=== PATIENT | female | born 1985 | race Two or more races ===

== ENCOUNTER 2017-01-19 08:19 | Emergency (ER) | payer OTHER ==
[2017-01-19] MEDS ORDERED: PSEUDOEPHEDRINE HCL 30 MG TABLET PO ONE (09:27)
[2017-01-19] MEDS ORDERED: IPRATROPIUM/ALBUTEROL 0.5-2.5 MG/3 ML AMPUL NEB ONE (09:27)
[2017-01-19] MEDS ORDERED: PREDNISONE 20 MG TABLET PO ONE (09:27)
--- NOTE | 2017-01-19 10:32 | ER Document Report ---
HPI - HPI Patient complains to provider of: cough, congestion Onset: Other Onset/Duration: Persistent - 5 days Quality of pain: Achy Pain Level: 4 Context: Patient presents complaining of cough and congestion for the past 5 days. Patient reports cough is occasionally productive. No fever. Associated Symptoms: Productive cough. denies: Fever Exacerbated by: Coughing Relieved by: Denies Similar symptoms previously: Yes Recently seen / treated by doctor: No - ROS ROS below otherwise negative: Yes Systems Reviewed and Negative: Yes All other systems reviewed and negative - CONSTITUTIONAL Constitutional: DENIES: Chills - EENT EENT: DENIES: Sore Throat, Ear Pain - CARDIOVASCULAR Cardiovascular: REPORTS: Chest pain - With coughing - RESPIRATORY Respiratory: REPORTS: Coughing - GASTROINTESTINAL Gastrointestinal: DENIES: Abdominal Pain, Nausea, Patient vomiting - MUSCULOSKELETAL Musculoskeletal: DENIES: Extremity pain, Back Pain, Neck Pain - DERM Skin Color: Normal Past Medical History - General Information source: Patient - Social History Smoking Status: Current Every Day Smoker Frequency of alcohol use: None Drug Abuse: None Occupation: food trades assistants Family History: Reviewed & Not Pertinent Patient has suicidal ideation: No Patient has homicidal ideation: No - Medical History Medical History: Negative Renal/ Medical History: Denies: Hx Peritoneal Dialysis Surgical Hx: Negative - Immunizations Hx Diphtheria, Pertussis, Tetanus Vaccination: Yes Vertical Provider Document - CONSTITUTIONAL Agree With Documented VS: Yes Exam Limitations: No Limitations General Appearance: WD/WN, No Apparent Distress - INFECTION CONTROL TRAVEL OUTSIDE OF THE [place] IN LAST 30 DAYS: No - HEENT HEENT: Atraumatic, Normocephalic. negative: Pharyngeal Exudate, Pharyngeal Tenderness, Pharyngeal Erythema, Tympanic Membrane Red Notes: Clear rhinorrhea - NECK Neck: Normal Inspection, Supple. negative: Lymphadenopathy-Left, Lymphadenopathy-Right - RESPIRATORY Respiratory: No Respiratory Distress, Wheezing. negative: Chest Non-Tender - Chest tenderness with coughing only O2 Sat by Pulse Oximetry: 97 - CARDIOVASCULAR Cardiovascular: Regular Rate, Regular Rhythm, No Murmur - BACK Back: Normal Inspection. negative: CVA Tenderness-Right, CVA Tenderness-Left - MUSCULOSKELETAL/EXTREMETIES Musculoskeletal/Extremeties: REGGIE FRAZIER - NEURO Level of Consciousness: Awake, Alert, Appropriate Motor/Sensory: No Motor Deficit - DERM Integumentary: Warm, Dry, No Rash Course - Re-evaluation Re-evalutation: 01/19/17 10:29 Patient with decreased wheezing with cough. Patient with good air movement. - Vital Signs Vital signs: Temp Pulse Resp BP Pulse Ox 98.6 F 75 16 133/88 H 97 01/19/17 08:25 01/19/17 08:25 01/19/17 08:25 01/19/17 08:25 01/19/17 08:25 - Diagnostic Test Radiology reviewed: Image reviewed, Reports reviewed Discharge - Discharge Clinical Impression: Bronchospasm, Chest wall pain Upper respiratory infection Qualifiers: URI type: unspecified URI Qualified Code(s): J06.9 - Acute upper respiratory infection, unspecified Condition: Stable Disposition: HOME, SELF-CARE Additional Instructions: Return immediately for any new or worsening symptoms Followup with your primary care provider, call tomorrow to make a followup appointment UPPER RESPIRATORY ILLNESS: You have a viral infection of the respiratory passages -- a "cold." This common infection causes nasal congestion, drainage, and often sore throat and cough. It is highly contagious. The disease usually lasts about 10 to 14 days. There is no "cure" for the viral infection -- it must run its course. If there is a complication, such as bacterial infection in the nose, sinuses, middle ear, or bronchial tubes, antibiotics may be required. The antibiotics won't affect the virus. Drink plenty of fluids. A humidifier may help. An expectorant medication or decongestant may make you more comfortable. Use acetaminophen or ibuprofen for fever or aches. See the doctor if fever persists over two days, if there is any significant worsening of your symptoms, or if you simply fail to improve as expected. BRONCHOSPASM: You have tightness in the bronchial tubes, called bronchospasm. This often occurs with bronchial infections. Allergies, inhaled chemicals, and polluted or cold air can also provoke bronchospasm. It's more likely in patients with asthma in the family. Emergency treatment of bronchospasm may include adrenaline shots or bronchodilator aerosol. You may feel lightheaded and have a rapid pulse for an hour or two. Rest and get plenty of fluids. At home, we'll treat you with a bronchodilator inhaler. Antibiotics and corticosteroids may be required for some patients. Until you recover, avoid chemical fumes, dusts, pollens, and exercising in very cold or dry air. If you smoke, stop now!! If you develop a fever, increased wheezing, chest pain, or severe shortness of breath, you should contact the doctor immediately. INHALED BRONCHODILATORS: You have received a treatment of and/or prescription for an inhaled bronchodilator -- a medication which stimulates the airways in the lung to dilate. This improves the flow of air in asthma, bronchitis, and emphysema. These medicines have some similarity to adrenaline, and can cause similar side effects: shakiness, racing heart, and a sense of nervousness. These side effects decrease with time. Contact your doctor if these side effects are severe. Do not over-use the medicine. Too-frequent use of the inhaler may make it ineffective. Call your doctor if the inhaler is not controlling your symptoms at the prescribed doses. STEROID MEDICATION: You have been given an injection of or oral medicine of the cortisone/ steroid class. This medication is used to control inflammation or allergy. Saturnino t is usually only given for a short period of time, until the acute process subsides. There are usually no side effects from short-term use of cortisone-like medications. Some persons feel an increased sense of well-being and are not sleepy at bedtime. Long-term use of cortisone medications is best avoided, unless required for a severe condition. If your condition does not remit, or relapses after the course of corticosteroid medication, you should consult your physician. USE OF ACETAMINOPHEN (Tylenol): Acetaminophen may be taken for pain relief or fever control. It's much safer than aspirin, offering a wider range of "safe" dosages. It is safe during . Some brand names are Tylenol, Panadol, Datril, Anacin 3, Tempra, and Liquiprin. Acetaminophen can be repeated every four hours. The following are maximum recommended dosages: >89 pounds or adults 650 mg to 900 mg Acetaminophen can be repeated every four hours. Maximum dose not to exceed 4000 mg a day. SMOKING: If you smoke, you should stop smoking. The tar and chemicals in cigarette smoke are harmful. Smoking has been shown to cause: emphysema chronic bronchitis lung cancer mouth and throat cancer stomach and pancreas cancer premature aging defects In addition, smoking increases ear and lung infections in children of smokers. FOLLOW-UP CARE: If you have been referred to a physician for follow-up care, call the physician s office for an appointment as you were instructed or within the next two days. If you experience worsening or a significant change in your symptoms, notify the physician immediately or return to the Emergency Department at any time for re-evaluation. Prescriptions: Albuterol Sulfate [Ventolin Hfa] 2 puff IH Q4HP PRN #17 gm PRN Reason: Acetaminophen with Codeine [Acetaminophen-Cod #3 Tablet] 1 each PO Q6 PRN #12 tablet PRN Reason: Guaifenesin/Pseudoephedrne HCl [Mucinex D ER Tablet] 1 each PO Q12 PRN #12 tab.er.12h PRN Reason: Prednisone [Deltasone 20 mg Tablet] 3 tab PO DAILY 4 Days Forms: Return to Work Referrals: [facility] [Provider Group] - Follow up as needed
[2017-01-19 10:58] VITALS: BP 121/80
== END 2017-01-19 10:57 | disposition home or self-care (01) ==
LOC: ER 08:19
DX: J06.9 Acute upper respiratory infection, unspecified (principal); J98.01 Acute bronchospasm; R07.89 Other chest pain; R05 Cough; J34.89 Other specified disorders of nose and nasal sinuses; F17.200 Nicotine dependence, unspecified, uncomplicated
CPT/HCPCS: 94640; 99283; 71020; J7512; J7620

== ENCOUNTER 2017-12-12 10:13 | Emergency (ER) | payer SELFPAY ==
[2017-12-12] MEDS ORDERED: LIDOCAINE 2% VISCOUS SOLN 20 ML UDCUP PO ONE (10:39)
[2017-12-12] MEDS ORDERED: DEXAMETHASONE SOD PHOS INJ 10 MG/1 ML VIAL IM ONE (10:39)
[2017-12-12] MEDS ORDERED: MAG HYDROX/AL HYDROX/SIMETH SUSP 30 ML UDCUP PO ONE (10:39)
[2017-12-12] MEDS ORDERED: DIPHENHYDRAMINE HCL 25 MG/10 ML UDC PO ONE (10:39)
--- NOTE | 2017-12-12 11:42 | ER Document Report ---
ED ENT - General Chief Complaint: Sore Throat Stated Complaint: FLU SYMPTOMS Time Seen by Provider: 12/12/17 10:33 Mode of Arrival: Ambulatory Information source: Patient Notes: Patient is a 32 year old female who presents to the ER today for sore throat that started 24 hours ago with body aches and chills, hot flashes. She admits to mild cough. Her significant other was just diagnosed with strep 2 days ago. TRAVEL OUTSIDE OF THE [place] IN LAST 30 DAYS: No - Related Data Allergies/Adverse Reactions: No Known Allergies Allergy (Verified 12/12/17 10:15) Past Medical History - General Information source: Patient - Social History Smoking Status: Never Smoker Chew tobacco use (# tins/day): No Frequency of alcohol use: None Drug Abuse: None Family History: Reviewed & Not Pertinent Patient has suicidal ideation: No Patient has homicidal ideation: No Renal/ Medical History: Denies: Hx Peritoneal Dialysis - Immunizations Hx Diphtheria, Pertussis, Tetanus Vaccination: Yes Review of Systems - Review of Systems Constitutional: See HPI EENT: See HPI Cardiovascular: No symptoms reported Respiratory: See HPI Gastrointestinal: No symptoms reported Genitourinary: No symptoms reported Female Genitourinary: No symptoms reported Musculoskeletal: No symptoms reported Skin: No symptoms reported Hematologic/Lymphatic: No symptoms reported Neurological/Psychological: No symptoms reported Physical Exam - Vital signs Vitals: Temp Pulse Resp BP Pulse Ox 98.1 F 89 16 120/75 96 12/12/17 10:29 12/12/17 10:29 12/12/17 10:29 12/12/17 10:29 12/12/17 10:29 - Notes Notes: PHYSICAL EXAMINATION: GENERAL: Mildly ill-appearing, but in no acute distress. HEAD: Atraumatic, normocephalic. EYES: Pupils equal round and reactive to light, extraocular movements intact, sclera anicteric, conjunctiva are normal. ENT: ear canals without erythema or foreign body, TMs pearly frank with good bony landmarks, nares patent, oropharynx erythematous with bilaterally enlarged tonsils with exudate. Moist mucous membranes. NECK: Normal range of motion, supple with bilateral cervical lymphadenopathy LUNGS: CTAB and equal. No wheezes rales or rhonchi. HEART: Regular rate and rhythm without murmurs EXTREMITIES: Normal range of motion, no pitting edema. No cyanosis. NEUROLOGICAL: Cranial nerves grossly intact. Normal sensory/motor exams. PSYCH: Normal mood, normal affect. SKIN: Warm, Dry, normal turgor, no rashes or lesions noted Course - Re-evaluation Re-evalutation: 12/12/17 11:42 Strep is positive today. Will treat with antibiotics, Magic mouthwash. Patient received a steroid shot for the swelling today. - Vital Signs Vital signs: Temp Pulse Resp BP Pulse Ox 98.1 F 89 16 120/75 96 12/12/17 10:29 12/12/17 10:29 12/12/17 10:29 12/12/17 10:29 12/12/17 10:29 Discharge - Discharge Clinical Impression: Strep throat Condition: Stable Disposition: HOME, SELF-CARE Additional Instructions: Return immediately for any new or worsening symptoms. Follow up with primary care provider, call tomorrow to make followup appointment. Prescriptions: Amoxicillin 500 mg PO TID #30 capsule Nystatin/Dexameth/Diphen [Magic Mouthwash ([facility] Formula) Susp] 5 ml PO QID #120 ml Forms: Return to Work
[2017-12-12 11:56] VITALS: BP 118/72
== END 2017-12-12 11:55 | disposition home or self-care (01) ==
LOC: ER 10:13
DX: J02.0 Streptococcal pharyngitis (principal); R05 Cough; R68.83 Chills (without fever)
CPT/HCPCS: 99283; 87880; J3490 ×2; J1100

== ENCOUNTER 2018-03-11 19:22 | Emergency (ER) | payer SELFPAY ==
[2018-03-11 19:29] VITALS: BP 119/74
--- NOTE | 2018-03-11 19:49 | ER Document Report ---
ED ENT - General Chief Complaint: Sore Throat Stated Complaint: SORE THROAT Time Seen by Provider: 03/11/18 19:38 Mode of Arrival: Ambulatory Information source: Patient Notes: 32 yo female presents to ED for complaint of sore throat. She states last night her throat started being scratchy then as the night progressed it became more more sore. She states that she has swollen tonsils with white pus pockets. Patient is alert and oriented speaking in full sentences respirations regular and unlabored and walking with a even steady gait. Patient does appear to have tonsil stones. TRAVEL OUTSIDE OF THE [place] IN LAST 30 DAYS: No - HPI Patient complains to provider of: Nose problem, Throat problem Onset: Yesterday Onset/Duration: Gradual Quality of pain: Sharp Severity: Moderate Pain Level: 4 Context: Recent Illness Location of pain: Nose, Sinus, Throat Associated symptoms: Runny nose, Sinus pain, Sinus drainage, Sore throat Similar symptoms previously: Yes Recently seen / treated by doctor: No - Related Data Allergies/Adverse Reactions: No Known Allergies Allergy (Verified 12/12/17 10:15) Past Medical History - General Information source: Patient - Social History Smoking Status: Current Every Day Smoker Cigarette use (# per day): Yes - 1/2 ppd Chew tobacco use (# tins/day): No Smoking Education Provided: Yes - 4 min Frequency of alcohol use: Social Drug Abuse: None Occupation: [employer] Lives with: Spouse/Significant other - Lives with Family History: Reviewed & Not Pertinent Patient has suicidal ideation: No Patient has homicidal ideation: No - Past Medical History Cardiac Medical History: Reports: None Pulmonary Medical History: Reports: None EENT Medical History: Reports: None Neurological Medical History: Reports: None Endocrine Medical History: Reports: None Renal/ Medical History: Reports: None Malignancy Medical History: Reports: None GI Medical History: Reports: None Musculoskeltal Medical History: Reports None Skin Medical History: Reports None Psychiatric Medical History: Reports: None Traumatic Medical History: Reports: None Infectious Medical History: Reports: None Surgical Hx: Negative Past Surgical History: Reports: None - Immunizations Immunizations up to date: Yes Hx Diphtheria, Pertussis, Tetanus Vaccination: Yes Review of Systems - Review of Systems Constitutional: No symptoms reported EENT: Throat pain Cardiovascular: No symptoms reported Respiratory: No symptoms reported Gastrointestinal: No symptoms reported Genitourinary: No symptoms reported Female Genitourinary: No symptoms reported Musculoskeletal: No symptoms reported Skin: No symptoms reported Hematologic/Lymphatic: No symptoms reported Neurological/Psychological: No symptoms reported -: Yes All other systems reviewed and negative Physical Exam - Vital signs Vitals: Temp Pulse Resp BP Pulse Ox 99.8 F 101 H 18 119/74 96 03/11/18 19:28 03/11/18 19:28 03/11/18 19:28 03/11/18 19:28 03/11/18 19:28 Interpretation: Normal - General General appearance: Appears well, Alert - HEENT Head: Normocephalic, Atraumatic Eyes: Normal Pupils: PERRL Ears: Normal External canal: Normal Tympanic membrane: Normal Sinus: Normal Nasal: Purulent discharge, Swelling Mouth/Lips: Normal Mucous membranes: Normal Pharynx: Erythema, Exudate, Tonsillar hypertrophy Neck: Normal - Respiratory Respiratory status: No respiratory distress Chest status: Nontender Breath sounds: Normal Chest palpation: Normal - Cardiovascular Rhythm: Regular Heart sounds: Normal auscultation Murmur: No - Abdominal Inspection: Normal Distension: No distension Bowel sounds: Normal Tenderness: Nontender Organomegaly: No organomegaly - Back Back: Normal, Nontender - Extremities General upper extremity: Normal inspection, Nontender, Normal color, Normal ROM , Normal temperature General lower extremity: Normal inspection, Nontender, Normal color, Normal ROM , Normal temperature, Normal weight bearing. No: Ry's sign - Neurological Neuro grossly intact: Yes Cognition: Normal Orientation: AAOx4 [place] Coma Scale Eye Opening: Spontaneous [place] Coma Scale Verbal: Oriented Alberto Coma Scale Motor: Obeys Commands [place] Coma Scale Total: 15 Speech: Normal Motor strength normal: LUE, RUE, LLE, RLE Sensory: Normal - Psychological Associated symptoms: Normal affect, Normal mood - Skin Skin Temperature: Warm Skin Moisture: Dry Skin Color: Normal Course - Re-evaluation Re-evalutation: 03/11/18 20:59 Patient was treated with penicillin G IM and Decadron IM for her strep throat. Patient also had upper respiratory infection. Patient stated that the symptoms would probably continue even after the penicillin and Decadron. Patient was instructed to follow-up with her primary doctor. Patient was instructed on precautions to not spread the strep to her . - Vital Signs Vital signs: Temp Pulse Resp BP Pulse Ox 99.8 F 101 H 18 119/74 96 03/11/18 19:28 03/11/18 19:28 03/11/18 19:28 03/11/18 19:28 03/11/18 19:28 Discharge - Discharge Clinical Impression: Strep pharyngitis URI (upper respiratory infection) Qualifiers: URI type: unspecified URI Qualified Code(s): J06.9 - Acute upper respiratory infection, unspecified Condition: Stable Disposition: HOME, SELF-CARE Instructions: Family Physicians / Practices, Use of Xana-Jca-Dndblwg Ibuprofen ([facility]) Additional Instructions: STREP THROAT: Your sore throat is due to the streptococcus germ (strep throat). Strep throat usually makes you feel quite ill with fever and aches, headache, swollen sore throat, and tender bumps under the angles of the jaw. Strep throat requires antibiotic treatment. Although the sore throat may go away by itself, complications such as rheumatic fever, kidney disease, or throat abscess can occur. We usually prescribe antibiotics by mouth. Be sure to take the medicine until it's gone. If you stop early, the strep may come back. If you are vomiting, are severely ill, or can't remember to take pills, we can give you an antibiotic shot. Take acetaminophen or ibuprofen for pain and fever. Sip frequent clear liquids, or use popsicles or ice chips. Anesthetic sprays or lozenges may help. Make sure the air in the room is not too dry. Avoid using decongestants or antihistamines. Call the doctor if there is no improvement in three days, or if you have difficulty breathing, increasing throat pain, high fever, rash, or frequent vomiting. UPPER RESPIRATORY ILLNESS: You have a viral infection of the respiratory passages -- a "cold." This common infection causes nasal congestion, drainage, and often sore throat and cough. It is highly contagious. The disease usually lasts about 10 to 14 days. There is no "cure" for the viral infection -- it must run its course. If there is a complication, such as bacterial infection in the nose, sinuses, middle ear, or bronchial tubes, antibiotics may be required. The antibiotics won't affect the virus. Drink plenty of fluids. A humidifier may help. An expectorant medication or decongestant may make you more comfortable. Use acetaminophen or ibuprofen for fever or aches. See the doctor if fever persists over two days, if there is any significant worsening of your symptoms, or if you simply fail to improve as expected. Penicillins The antibiotic you have received is a member of the penicillin family. This is a very useful class of antibiotics. The particular type of antibiotic chosen for you was determined by the nature of your problem. Penicillins are absorbed best when taken on an empty stomach, and should be taken either a half hour before or two hours after a meal. Some newer medicines of the penicillin class are better taken with food -- if this is the case, the pharmacist will label the medicine to alert you. Penicillins usually have no side effects. However, allergy to penicillins is common. If you have had an allergic reaction to any drug of the penicillin family, you should never take any other penicillin. Notify your doctor at once if you develop hives, itching, swelling, faintness, or shortness of breath. Less serious side effects can include nausea or diarrhea. DECONGESTANT MEDICATION: A decongestant medicine has been suggested. Often this medicine is combined in the same tablet with an antihistamine or expectorant. This type of medicine is helpful in treating a bad cold or sinus condition, as well as in treatment of the nasal congestion of hay fever. It is not of much benefit for lung infections. Decongestant medicines are related to stimulants. They can cause an increase in blood pressure and heart rate. Persons with heart disease and high blood pressure should not take decongestants without discussing this with the physician. If you develop palpitations, chest pain, headache, or tremors, stop the medicine and consult your physician. STEROID MEDICATION: You have been given an injection of or oral medicine of the cortisone/ steroid class. This medication is used to control inflammation or allergy. Saturnino t is usually only given for a short period of time, until the acute process subsides. There are usually no side effects from short-term use of cortisone-like medications. Some persons feel an increased sense of well-being and are not sleepy at bedtime. Long-term use of cortisone medications is best avoided, unless required for a severe condition. If your condition does not remit, or relapses after the course of corticosteroid medication, you should consult your physician. USE OF ACETAMINOPHEN (Tylenol): Acetaminophen may be taken for pain relief or fever control. It's much safer than aspirin, offering a wider range of "safe" dosages. It is safe during . Some brand names are Tylenol, Panadol, Datril, Anacin 3, Tempra, and Liquiprin. Acetaminophen can be repeated every four hours. The following are maximum recommended dosages: >89 pounds or adults 650 mg to 900 mg Acetaminophen can be repeated every four hours. Maximum dose not to exceed 4000 mg a day. SMOKING: If you smoke, you should stop smoking. The tar and chemicals in cigarette smoke are harmful. Smoking has been shown to cause: emphysema chronic bronchitis lung cancer mouth and throat cancer stomach and pancreas cancer premature aging defects In addition, smoking increases ear and lung infections in children of smokers. FOLLOW-UP CARE: If you have been referred to a physician for follow-up care, call the physician s office for an appointment as you were instructed or within the next two days. If you experience worsening or a significant change in your symptoms, notify the physician immediately or return to the Emergency Department at any time for re-evaluation. Forms: Smoking Cessation Education, Return to Work
[2018-03-11] MEDS ORDERED: DEXAMETHASONE SOD PHOS INJ 10 MG/1 ML VIAL IM ONE (20:01)
[2018-03-11] MEDS ORDERED: PENICILLIN G BENZATHINE 1.2 MILLION UNIT/2 ML DISP.SYRIN IM ONE (20:01)
== END 2018-03-11 20:37 | disposition home or self-care (01) ==
LOC: ER 19:22
DX: J02.0 Streptococcal pharyngitis (principal); J35.1 Hypertrophy of tonsils; R09.89 Other specified symptoms and signs involving the circulatory and respiratory systems; F17.210 Nicotine dependence, cigarettes, uncomplicated
CPT/HCPCS: 99406; 99283; 96372; 87880; J0561; J1100

== ENCOUNTER 2018-07-10 08:23 | Emergency (ER) | payer SELFPAY ==
[2018-07-10] MEDS ORDERED: METHOCARBAMOL 750 MG TABLET PO ONE (09:19)
[2018-07-10] MEDS ORDERED: LIDOCAINE 5% (700 MG) TRANSDERMAL ADH..PATCH TP ONE (09:20)
[2018-07-10] MEDS ORDERED: KETOROLAC TROMETHAMINE 60 MG/2 ML SDV IM ONE (09:20)
--- NOTE | 2018-07-10 09:56 | ER Document Report ---
HPI - HPI Pain Level: 3 Notes: Patient is a 32-year-old female who presents with chief complaint of right groin and leg pain. Patient reports this is been ongoing for 2 days. Patient denies any trauma or injury to the area. Patient denies any fever, chills, abnormal vaginal discharge. Patient reports last menstrual period was on . Patient reports no possibility of when she is in a same-sex relationship. Patient is a non-smoker, is not taking control and has had no recent travel. No history of DVT. - MUSCULOSKELETAL Musculoskeletal: REPORTS: Extremity pain - right leg groin down Past Medical History - Social History Smoking Status: Current Every Day Smoker Chew tobacco use (# tins/day): No Frequency of alcohol use: Occasional Drug Abuse: None Family History: Reviewed & Not Pertinent Patient has suicidal ideation: No Patient has homicidal ideation: No Renal/ Medical History: Denies: Hx Peritoneal Dialysis - Immunizations Immunizations up to date: Yes Hx Diphtheria, Pertussis, Tetanus Vaccination: Yes Vertical Provider Document - CONSTITUTIONAL Notes: PHYSICAL EXAMINATION: GENERAL: Well-appearing, well-nourished and in no acute distress. HEAD: Atraumatic, normocephalic. EYES: Pupils equal round extraocular movements intact, conjunctiva are normal. ENT: Nares patent NECK: Normal range of motion LUNGS: No respiratory distress Musculoskeletal: Normal range of motion was noted to right lower extremity however it is painful for patient to move right leg. Palpable lymph node noted to right inguinal canal. No rashes or swelling noted. NEUROLOGICAL: Normal speech, normal gait. PSYCH: Normal mood, normal affect. SKIN: Warm, Dry, normal turgor, no rashes or lesions noted. - INFECTION CONTROL TRAVEL OUTSIDE OF THE [place] IN LAST 30 DAYS: No Course - Re-evaluation Re-evalutation: Patient's examination and history of present illness is consistent with a musculoskeletal strain. Dr. Robert came to the room to evaluate the patient and is in agreement's. Patient will be discharged home at this time in stable condition with strict ED return precautions as well as plan for follow-up with her primary care. Patient agrees with this plan. - Vital Signs Vital signs: Temp Pulse Resp BP Pulse Ox 98.5 F 95 18 110/67 98 07/10/18 08:29 07/10/18 08:29 07/10/18 08:29 07/10/18 08:29 07/10/18 08:29 Discharge - Discharge Clinical Impression: Musculoskeletal strain Condition: Stable Disposition: HOME, SELF-CARE Additional Instructions: Muscle Strain Your pain is most consistent with a muscle strain--a tear of the fibers within the muscle. This often occurs with strenuous exertion, or during an injury that suddenly stretches the muscle. The seriousness of a strain varies. Some strains heal within days, others cause problems for months. X-rays cannot show a muscle strain. X-rays are taken only if symptoms suggest that a fracture could be present. The usual treatment of a muscle strain is rest and ice packs. Sometimes, a sling, splint, or crutches may be necessary to rest the muscle. The muscle can be used again once pain subsides. Severe strains require a special exercise and stretching program to prevent permanent stiffness and disability. Your doctor will advise you if this will be necessary. Call the doctor immediately if pain or swelling becomes severe, or if numbness or discoloration develop. Lymphadenopathy You have enlargement of lymph glands, called lymphadenopathy. Lymph glands filter tissue fluids. They help to fight infection. Most of the time, enlarged lymph glands are not serious. Lymph glands may react to a viral or bacterial infection by becoming swollen and painful. When the infection goes away, the glands shrink. Sometimes a lymph gland will remain enlarged for a long time after an infection. Occasionally, a lymph gland may be overwhelmed by infection and form an abscess. If an enlarged lymph gland has signs that are suspicious for tumor, the doctor will recommend a biopsy. A suspicious gland usually is NOT painful, grows very slowly, and is rock-hard to touch. See the doctor or return if there is increasing swelling and redness, high fever, difficulty breathing, or any other change for the worse. Please take ibuprofen 600 mg every 6 hours. Use the narcotic pain medication only for severe pain. You may take 1/2-1 tablet every 4 hours. Apply heat to the area. Follow-up with your primary care provider if not improving over the next 2-3 days. Prescriptions: Hydrocodone/Acetaminophen [Hydrocodon-Acetaminophen 5-325] 0.5 - 1 each PO Q4H PRN #8 tablet PRN Reason: For Pain Lidocaine [Lidoderm 5% (700 mg) Transdermal Patch] 1 patch TP DAILY #30 adh..patch Forms: Return to Work Referrals: [facility] [Provider Group] - Follow up as needed [facility] [Provider Group] - Follow up as needed
[2018-07-10 11:00] LABS: APPEARANCE,URINE SLIGHTLY-CLOUDY; BILIRUBIN,URINE NEGATIVE (NEGATIVE); COLOR,URINE YELLOW; GLUCOSE, URINE NEGATIVE (NEGATIVE); KETONES,URINE NEGATIVE (NEGATIVE); LEUKOCYTE ESTERASE,URINE NEGATIVE (NEGATIVE); NITRITE,URINE NEGATIVE (NEGATIVE); PROTEIN,URINE NEGATIVE (NEGATIVE); URINE SPECIFIC GRAVITY 1.035
[2018-07-10 11:40] VITALS: BP 105/64
[2018-07-10 12:20] LABS: CHLAM PCR NOT DETECTED (NOT DETECT); GON PCR NOT DETECTED (NOT DETECT)
== END 2018-07-10 11:40 | disposition home or self-care (01) ==
LOC: ER 08:23
DX: M79.604 Pain in right leg (principal); F17.200 Nicotine dependence, unspecified, uncomplicated
CPT/HCPCS: 99283; 96372; 81001; 87491; 87591; J1885; J3490

== ENCOUNTER 2020-05-09 10:38 | Emergency (ER) | payer BC ==
--- NOTE | 2020-05-09 11:03 | ER Document Report ---
ED Medical Screen (RME) - General Stated Complaint: CHEST PAIN Time Seen by Provider: 05/09/20 10:59 Mode of Arrival: Ambulatory Information source: Patient Notes: HPI; 34-year-old female presents emergency room complaining of intermittent chest pain that she describes as pressure to the center of her chest that started last night. Today while driving had some blurry vision. No medications for symptoms. Pain worse with movement. Denies any recent trauma or injury. PE: Alert and oriented x3. Lungs: Clear to auscultation without rales, rhonchi, wheezes. Heart: Regular rate rhythm without murmurs, rubs, gallops. I have greeted and performed a rapid initial assessment of this patient. A comprehensive ED assessment and evaluation of the patient, analysis of test results and completion of the medical decision making process will be conducted by additional ED providers. I have specifically instructed the patient or family members with the patient to immediately return to any nursing staff should anything change in the patient's condition or with their chief complaint. TRAVEL OUTSIDE OF THE [place] IN LAST 30 DAYS: No - Related Data Allergies/Adverse Reactions: No Known Allergies Allergy (Verified 05/09/20 10:57) Past Medical History Renal/ Medical History: Denies: Hx Peritoneal Dialysis - Immunizations Immunizations up to date: Yes Hx Diphtheria, Pertussis, Tetanus Vaccination: Yes Physical Exam - Vital signs Vitals: Temp Pulse Resp BP Pulse Ox 99.7 F 76 14 113/66 99 05/09/20 10:50 05/09/20 10:50 05/09/20 10:50 05/09/20 10:50 05/09/20 10:50 Course - Vital Signs Vital signs: Temp Pulse Resp BP Pulse Ox 99.7 F 76 14 113/66 99 05/09/20 10:50 05/09/20 10:50 05/09/20 10:50 05/09/20 10:50 05/09/20 10:50
[2020-05-09 11:45] LABS: ABSOLUTE BASOPHILS # (AUTO) 0.1 10^3/uL (0.0-0.2); ABSOLUTE EOSINOPHILS # (AUTO) 0.3 10^3/uL (0.0-0.6); ABSOLUTE LYMPHOCYTES (AUTO) 2.8 10^3/uL (0.5-4.7); ABSOLUTE MONOCYTES (AUTO) 0.5 10^3/uL (0.1-1.4); ABSOLUTE NEUT (AUTO) 7.4 10^3/uL (1.7-8.2); BASOPHILS % (AUTO) 0.7 % (0-2); EOSINOPHILS % (AUTO) 2.6 % (0-6); HEMATOCRIT 35.6 % (36.0-47.0); HEMOGLOBIN 12.4 g/dL (12.0-15.5); LYMPHOCYTES % (AUTO) 25.1 % (13-45); MEAN CORPUSCULAR HEMOGLOBIN 31.1 pg (27.0-33.4); MEAN CORPUSCULAR HGB CONC 34.7 g/dL (32.0-36.0); MEAN CORPUSCULAR VOLUME 90 fl (80-97); MONOCYTES % (AUTO) 4.8 % (3-13); PLATELET COUNT 278 10^3/uL (150-450); RED BLOOD COUNT 3.98 10^6/uL (3.72-5.28); RED CELL DISTRIBUTION WIDTH 13.4 % (11.5-14.0); SEGMENTED NEUTROPHILS % (AUTO) 66.8 % (42-78); TOTAL CELLS COUNTED % (AUTO) 100 %
[2020-05-09 12:09] LABS: ALKALINE PHOSPHATASE 66 U/L (38-126); ANION GAP 6 (5-19); ASPARTATE AMINO TRANSFERASE 17 U/L (14-36); BILIRUBIN,TOTAL 0.2 mg/dL (0.2-1.3); BLOOD UREA NITROGEN 13 mg/dL (7-20); CALCIUM 9.1 mg/dL (8.4-10.2); CARBON DIOXIDE 27 mmol/L (22-30); CHLORIDE 108 mmol/L (98-107); GLUCOSE 92 mg/dL (75-110); POTASSIUM 4.1 mmol/L (3.6-5.0); TOTAL PROTEIN 7.2 g/dL (6.3-8.2)
--- NOTE | 2020-05-09 12:28 | RADIOLOGY REPORT (SQ) ---
EXAM DESCRIPTION: CHEST 2 VIEWS IMAGES COMPLETED DATE/TIME: 05/09/2020 12:05 pm REASON FOR STUDY: chest pain COMPARISON: 01/19/2017 EXAM PARAMETERS: NUMBER OF VIEWS: two views TECHNIQUE: Digital Frontal and Lateral radiographic views of the chest acquired. RADIATION DOSE: NA LIMITATIONS: none FINDINGS: LUNGS AND PLEURA: No opacities, masses or pneumothorax. No pleural effusion. MEDIASTINUM AND HILAR STRUCTURES: No masses or contour abnormalities. HEART AND VASCULAR STRUCTURES: Heart normal size. No evidence for failure. BONES: No acute findings. HARDWARE: None in the chest. OTHER: No other significant finding. IMPRESSION: NO ACUTE RADIOGRAPHIC FINDING IN THE CHEST. TECHNICAL DOCUMENTATION: JOB ID: [id number] 2010 [employer]- All Rights Reserved Reading location - IP/workstation name: [email or web address]
--- NOTE | 2020-05-09 13:21 | ER Document Report ---
ED Cardiac - General Chief Complaint: Chest Wall Pain Stated Complaint: CHEST PAIN Time Seen by Provider: 05/09/20 10:59 Mode of Arrival: Ambulatory Information source: Patient TRAVEL OUTSIDE OF THE [place] IN LAST 30 DAYS: No - HPI Notes: Patient presents with chest pain. She states it started yesterday. It is located in the left upper part of her chest. It is worse with movement of her ;left arm and better when she does not move her left arm. Patient states she has not had any significant shortness of breath. No cough cold or congestion. No fevers. No known trauma. No new exercise routine. No heavy lifting. She denies any rashes or discoloration of the chest. No breast symptoms. No previous history of similar pain. No history of heart disease. No significant past medical history. No family history of early heart disease. This pain has been intermittent. It is moderate in intensity. It is sharp. - Related Data Allergies/Adverse Reactions: No Known Allergies Allergy (Verified 05/09/20 10:57) Past Medical History - General Information source: Patient - Social History Smoking Status: Current Every Day Smoker Chew tobacco use (# tins/day): No Frequency of alcohol use: Social Drug Abuse: None Family History: Reviewed & Not Pertinent Patient has homicidal ideation: No Renal/ Medical History: Denies: Hx Peritoneal Dialysis - Immunizations Immunizations up to date: Yes Hx Diphtheria, Pertussis, Tetanus Vaccination: Yes Review of Systems - Review of Systems Constitutional: denies: Chills, Fever Cardiovascular: Chest pain. denies: Palpitations Respiratory: denies: Cough, Short of breath -: Yes All other systems reviewed and negative Physical Exam - Vital signs Vitals: Temp Pulse Resp BP Pulse Ox 99.7 F 76 14 113/66 99 05/09/20 10:50 05/09/20 10:50 05/09/20 10:50 05/09/20 10:50 05/09/20 10:50 Interpretation: Normal - General General appearance: Appears well, Alert - HEENT Head: Normocephalic, Atraumatic Eyes: Normal Pupils: PERRL - Respiratory Respiratory status: No respiratory distress Chest status: Nontender Breath sounds: Normal Chest palpation: Tender - Left upper chest is tender to palpation. When I put her left arm through range of motion it does increase her chest pain. - Cardiovascular Rhythm: Regular Heart sounds: Normal auscultation Murmur: No - Abdominal Inspection: Normal Distension: No distension Bowel sounds: Normal Tenderness: Nontender Organomegaly: No organomegaly - Back Back: Normal, Nontender - Extremities General upper extremity: Normal inspection, Nontender, Normal color, Normal ROM, Normal temperature General lower extremity: Normal inspection, Nontender, Normal color, Normal ROM, Normal temperature, Normal weight bearing. No: Ry's sign - Neurological Neuro grossly intact: Yes Cognition: Normal Orientation: AAOx4 Alberto Coma Scale Eye Opening: Spontaneous Alberto Coma Scale Verbal: Oriented [place] Coma Scale Motor: Obeys Commands Alberto Coma Scale Total: 15 Speech: Normal Motor strength normal: LUE, RUE, LLE, RLE Sensory: Normal - Psychological Associated symptoms: Normal affect, Normal mood - Skin Skin Temperature: Warm Skin Moisture: Dry Skin Color: Normal Course - Re-evaluation Re-evalutation: 05/09/20 13:19 Patient presents with symptoms that appear to be consistent with musculoskeletal left-sided chest pain. There is no evidence of pulmonary pathology. Patient has a negative PERC score. She has a nonischemic EKG with unremarkable laboratories. - Vital Signs Vital signs: Temp Pulse Resp BP Pulse Ox 99.7 F 76 17 97/65 L 100 05/09/20 10:50 05/09/20 10:50 05/09/20 13:01 05/09/20 13:00 05/09/20 13:01 - Laboratory Result Diagrams: 05/09/20 11:27 05/09/20 11:27 Laboratory results interpreted by me: 05/09/20 05/09/20 11:27 11:27 WBC 11.0 H Hct 35.6 L Chloride 108 H - Diagnostic Test Radiology reviewed: Image reviewed, Reports reviewed - EKG Interpretation by [facility] EKG shows normal: Sinus rhythm Rate: Normal - 77 Rhythm: NSR [place]/QRS: No: Right axis deviation, Left axis deviation Discharge - Discharge Clinical Impression: Chest wall pain Condition: Stable Disposition: HOME, SELF-CARE Instructions: Chest Wall Pain ([facility]) Additional Instructions: You may use ibuprofen or Tylenol [id number] for the pain. Please return if you have symptoms of increasing pain, fever, shortness of breath or any c oncerns. Forms: Return to Work Referrals: [facility] [Provider Group] - Follow up in 1 week
[2020-05-09 14:12] VITALS: BP 105/66
--- NOTE | 2020-05-10 09:40 | EKG REPORT ---
SEVERITY:- NORMAL ECG - SINUS RHYTHM : Confirmed by: Kerwin Villarreal 10-May-2020 09:38:56
== END 2020-05-09 14:15 | disposition home or self-care (01) ==
LOC: ER 10:38
DX: R07.89 Other chest pain (principal); F17.200 Nicotine dependence, unspecified, uncomplicated
CPT/HCPCS: 36415; 71046; 80053; 84484; 84703; 85025; 93005; 93010; 99285